=== PATIENT | female | born 1990 | race Caucasian/White ===

== ENCOUNTER 2020-03-30 01:45 | Inpatient (IN) ==
[2020-03-30 03:36] LABS: Hematocrit 40 % (35-47); Hemoglobin 13.8 g/dL (12.0-16.0); Mean Corpuscular HGB Conc 34 g/dL (31-36); Mean Corpuscular Hemoglobin 32 pg (27-31); Mean Corpuscular Volume 92 fL (80-97); Mean Platelet Volume 8.8 fL (7.4-10.4); Platelet Count 192 10^3/uL (150-450); Red Blood Count 4.37 10^6 /uL (3.70-4.87); Red Cell Distribution Width 13 % (10-15); White Blood Count 9.1 10^3/uL (3.5-10.8)
[2020-03-30 03:55] LABS: Urine Benzodiazepine Screen None Detected (None Detect); Urine Cannabinoids Screen None Detected (None Detect); Urine Opiates Screen None Detected (None Detect)
[2020-03-30] MEDS ORDERED: Lactated Ringers 1000 ml BAG 1,000 ML IV ONE ×2 (04:01→09:32)
[2020-03-30] MEDS ORDERED: Lactated Ringers 1000 ml BAG 1,000 ML IV SCH ×3 (05:00→13:00)
[2020-03-30] MEDS ORDERED: OBEPIDURAL 250 ML EPIDURAL ONE (05:37)
[2020-03-30] MEDS ORDERED: Bupivacaine 0.25% SDV PF 10 ML VIAL INJ ONE (06:40)
[2020-03-30] MEDS ORDERED: Oxytocin in LR 20 UNITS/1,000 ML BAG IVPB ONE (09:20)
[2020-03-30] MEDS ORDERED: Sodium Citrate/Citric Acid LIQ 15 ML UDC PO PRN (09:32)
[2020-03-30] MEDS ORDERED: Lactated Ringers 1000 ml BAG 500 ML IV PRN ×2 (09:32)
[2020-03-30] MEDS ORDERED: Phenylephrine 40 mcg/mL 10mL (400mcg) SYRINGE IV PUSH PRN ×2 (09:32)
[2020-03-30] MEDS ORDERED: OBEPIDURAL 250 ML EPIDURAL SCH (10:00)
[2020-03-30] MEDS ORDERED: Witch Hazel PAD JAR TOPICAL PRN (12:31)
[2020-03-30] MEDS ORDERED: Oxytocin in LR 20 UNITS/1,000 ML BAG IVPB SCH (13:00)
[2020-03-30] MEDS: Dibucaine 1% OINT 28.35 GM TUBE PR PRN ×2 (14:31→21:31)
[2020-03-30] MEDS ORDERED: Lidocaine 1% VIAL 10 MG/ML VIAL ONE (15:13)
[2020-03-31 07:18] LABS: ABS Eosinophils 0.1 10^3/ul (0-0.6); ABS Lymphocytes 2.1 10^3/ul (1.0-4.8); ABS Monocytes 0.9 10^3/ul (0-0.8); ABS Neutrophils 8.8 10^3/ul (1.5-7.7); Eosinophil % 0.7 %; Hematocrit 37 % (35-47); Hemoglobin 12.7 g/dL (12.0-16.0); Lymphocyte % 17.8 %; Mean Corpuscular HGB Conc 34 g/dL (31-36); Mean Corpuscular Hemoglobin 32 pg (27-31); Mean Corpuscular Volume 92 fL (80-97); Mean Platelet Volume 8.6 fL (7.4-10.4); Platelet Count 156 10^3/uL (150-450); Red Blood Count 4.04 10^6 /uL (3.70-4.87); Red Cell Distribution Width 13 % (10-15)
[2020-04-01 08:23] VITALS: BP 117/87
== END 2020-04-01 10:40 | disposition home or self-care (01) | DRG 560 ==
LOC: MCHOBOUT 01:45 → MCHOB 03:01
PROVIDERS: ADMIT Obstetrics & Gynecology; ATTEND Obstetrics & Gynecology

== ENCOUNTER 2023-05-23 06:44 | Inpatient (IN) ==
[2023-05-23] MEDS ORDERED: Lidocaine 1% VIAL 10 MG/ML 30 ML VIAL INJ PRN (07:26)
[2023-05-23] MEDS ORDERED: Lactated Ringers 1000 ml BAG 1,000 ML IV ONE ×2 (07:26→08:25)
[2023-05-23] MEDS ORDERED: Buffered Lidocaine 1% SYRIN 1 ml INTRADERM ONE (07:26)
[2023-05-23] MEDS ORDERED: Lactated Ringers 1000 ml BAG 1,000 ML IV SCH ×3 (08:00→21:00)
[2023-05-23] MEDS ORDERED: OBEPIDURAL (200 ML) 200 ML EPIDURAL ONE (08:02)
[2023-05-23] MEDS ORDERED: Bupivacaine 0.25% SDV PF 10 ML VIAL INJ ONE (08:02)
[2023-05-23] MEDS ORDERED: Bupivacaine 0.5% SDV PF 30ML VIAL ONE (08:03)
[2023-05-23 08:09] LABS: ABS Basophils 0.1 10^3/uL (0.0-0.1); ABS Eosinophils 0.1 10^3/uL (0.0-0.5); ABS Lymphocytes 2.3 10^3/uL (1.0-4.8); ABS Monocytes 0.8 10^3/uL (0.0-0.9); ABS Neutrophils 4.9 10^3/uL (1.5-7.6); ABS Nucleated RBC 0.01 10^3/ul; Eosinophil % 1.2 %; Hematocrit 37.4 % (35-45); Lymphocyte % 27.9 %; Mean Corpuscular Hemoglobin 31.5 pg (27-33); Mean Corpuscular Hgb Conc 34.8 g/dL (31-36); Mean Corpuscular Volume 90.5 fL (80-97); Mean Platelet Volume 8.6 fL (7.5-11.2); Nucleated Red Blood Cells % 0.1 /100 WBC (0.0-0.4); Platelet Count 196 10^3/uL (150-450); Red Blood Count 4.13 10^6/uL (3.63-4.92); Red Cell Distribution Width 13.1 % (12-17); White Blood Count 8.1 10^3/uL (3.8-11.8)
[2023-05-23] MEDS ORDERED: Phenylephrine 40 mcg/mL 10mL (400mcg) SYRINGE IV PUSH PRN (08:25)
[2023-05-23 08:38] LABS: Urine Benzodiazepine Screen None Detected (None Detect); Urine Cannabinoids Screen None Detected (None Detect); Urine Opiates Screen None Detected (None Detect)
[2023-05-23] MEDS ORDERED: OBEPIDURAL (200 ML) 200 ML EPIDURAL SCH (09:00)
[2023-05-23] MEDS: Phenylephrine 40 mcg/mL 10mL (400mcg) SYRINGE IV PUSH PRN ×2 (09:02→09:07)
[2023-05-23 09:34] LABS: Urine Appearance Clear; Urine Bilirubin Negative (Negative); Urine Blood 2+ (Negative); Urine Color Straw; Urine Glucose Negative (Negative); Urine Ketones Negative (Negative); Urine Nitrite Negative (Negative); Urine Protein Negative (Negative); Urine Specific Gravity 1.005 (1.002-1.030); Urine Urobilinogen Negative (Negative)
[2023-05-23 09:43] LABS: Urine Bacteria Absent (Absent); Urine Red Blood Cell Trace(0-2/hpf) (Absent); Urine Squamous Epithelial Cell Present (Absent); Urine White Blood Cell Trace(0-5/hpf) (Absent)
[2023-05-23] MEDS ORDERED: Oxytocin in LR 20,000 MILLI.UNIT/1,000 ML BAG IV ONE (17:02)
[2023-05-23] MEDS ORDERED: Oxytocin in LR 20,000 MILLI.UNIT/1,000 ML BAG IV SCH ×2 (18:30→20:35)
[2023-05-23] MEDS ORDERED: Glycerin ADULT 2.4 gm SUPP PR PRN (20:32)
[2023-05-23] MEDS ORDERED: Dibucaine 1% OINT 28.35 GM TUBE PR PRN (20:32)
[2023-05-23] MEDS ORDERED: Witch Hazel PAD JAR TOPICAL PRN (20:32)
[2023-05-23] MEDS ORDERED: Phenylephrine 40 mcg/mL 10mL (400mcg) SYRINGE ONE (23:03)
[2023-05-24 07:28] LABS: ABS Eosinophils 0.1 10^3/uL (0.0-0.5); ABS Lymphocytes 2.2 10^3/uL (1.0-4.8); ABS Monocytes 0.8 10^3/uL (0.0-0.9); ABS Neutrophils 7.1 10^3/uL (1.5-7.6); ABS Nucleated RBC 0.01 10^3/ul; Hematocrit 34.8 % (35-45); Hemoglobin 12.1 g/dL (11.5-14.3); Lymphocyte % 21.2 %; Mean Corpuscular Hemoglobin 31.7 pg (27-33); Mean Corpuscular Hgb Conc 34.8 g/dL (31-36); Mean Corpuscular Volume 91.1 fL (80-97); Mean Platelet Volume 8.3 fL (7.5-11.2); Nucleated Red Blood Cells % 0.1 /100 WBC (0.0-0.4); Platelet Count 170 10^3/uL (150-450); Red Blood Count 3.82 10^6/uL (3.63-4.92); Red Cell Distribution Width 13.1 % (12-17); White Blood Count 10.2 10^3/uL (3.8-11.8)
[2023-05-25 08:50] VITALS: BP 105/72
== END 2023-05-25 13:27 | disposition home or self-care (01) | DRG 560 ==
LOC: MCHOBOUT 06:44 → MCHOB 07:29
PROVIDERS: ADMIT Midwife; ATTEND Midwife